=== PATIENT | female | born 1955 | race African-American/Black ===

== ENCOUNTER 2019-07-11 12:17 | Emergency (ER) | payer OTHER, MEDICAID ==
[~2019-07-11] VITALS: Ht 167.6 cm; Wt 93.9 kg
[2019-07-11 12:28] VITALS: BP 143/74
--- NOTE | 2019-07-11 12:28 | NUR ---
C/O ABSCESS TO PTS L OUTER THIGH X YESTERDAY. SITE IS WARM TO TOUCH, RED, AND INFLAMMED. PAIN 5/10. +ITCHING. VSS. [id number]. BED IS DOWN, LOCKED, BED RAIL X 1, ERMD TO SEE PT. PMH- DM
[2019-07-11 14:03] VITALS: BP 143/74
--- NOTE | 2019-07-11 14:05 | NUR ---
Patient discharged with v/s stable. Written and verbal after care instructions given and explained. Patient alert, oriented and verbalized understanding of instructions. Ambulatory with steady gait. All questions addressed prior to discharge. ID band removed. Patient advised to follow up with PMD. Rx of benadryl,keflex, prednisone given. Patient educated on indication of medication including possible reaction and side effects. Opportunity to ask questions provided and answered.
== END 2019-07-11 14:05 | disposition home or self-care (01) ==
LOC: MED 12:17
DX: L03.116 Cellulitis of left lower limb (principal); E11.9 Type 2 diabetes mellitus without complications
CPT/HCPCS: 99283